=== PATIENT | male | born 1955 | race Caucasian/White ===

== ENCOUNTER 2018-06-21 17:33 | Emergency (ER) | payer MEDICARE ==
[2018-06-21 17:45] VITALS: BP 179/81; PULSE 77; RESP 18; TEMP 97.5
[2018-06-21] MEDS ORDERED: ONDANSETRON 4 MG/2 ML VIAL IVP STA (17:57)
[2018-06-21] MEDS ORDERED: SODIUM CHLORIDE 0.9% 1,000 ML IV STA ×2 (17:57)
[2018-06-21] MEDS ORDERED: KETOROLAC 30 MG/ML 1 ML VIAL IVP STA (17:57)
[2018-06-21] MEDS ORDERED: SODIUM CHLORIDE 0.9% 500 ML IV STA (17:57)
[2018-06-21] MEDS ORDERED: HYDROmorphone 0.5 MG/0.5 ML SYRINGE IVP STA (17:57)
[2018-06-21 18:44] LABS: Basophils # (A) 0.1 k/uL (0-0.2); Basophils % (A) 1 %; Eosinophils # (A) 0.2 k/uL (0-0.7); Eosinophils % (A) 2 %; HCT 42.6 % (39.0-53.0); HGB 14.4 gm/dL (13.0-17.5); Lymphocytes # (A) 2.4 k/uL (1.0-4.8); Lymphocytes % (A) 26 %; MCH 29.4 pg (25.0-35.0); MCHC 33.8 g/dL (31.0-37.0); MCV 86.9 fL (80.0-100.0); Mean Platelet Volume 6.8; Monocytes # (A) 0.6 k/uL (0-1.0); Monocytes % (A) 6 %; Neutrophils # (A) 6.1 k/uL (1.3-7.7); Neutrophils % (A) 64 %; Platelet Count 265 k/uL (150-450); RDW 13.7 % (11.5-15.5); WBC 9.5 k/uL (3.8-10.6)
[2018-06-21 18:54] LABS: ALT 29 U/L (21-72); AST 17 U/L (17-59); Albumin 3.8 g/dL (3.5-5.0); Alkaline Phosphatase 79 U/L (38-126); Amylase 49 U/L (30-110); Anion Gap 11 mmol/L; Blood Urea Nitrogen 24 mg/dL (9-20); Calcium 9.2 mg/dL (8.4-10.2); Carbon Dioxide 23 mmol/L (22-30); Chloride 101 mmol/L (98-107); Glucose 370 mg/dL (74-99); Lipase 229 U/L (23-300); Potassium 4.7 mmol/L (3.5-5.1); Sodium 135 mmol/L (137-145); Total Bilirubin 0.3 mg/dL (0.2-1.3); Total Protein 6.6 g/dL (6.3-8.2)
--- NOTE | 2018-06-21 19:07 | ED ---
General Adult HPI - General Chief complaint: Abdominal Pain Stated complaint: POSS KIDNEY STONE Time Seen by Provider: 06/21/18 17:36 Source: patient, RN notes reviewed, old records reviewed Mode of arrival: ambulatory Limitations: no limitations - History of Present Illness Initial comments: This is a 62-year-old male the ER for evaluation. Patient coming in with right- sided flank pain. Patient places having similar pain a kidney stone pain. Patient has history of kidney stones. No other real significant medical issues. Patient states blood pressure is elevated and has been elevated recently. No recent travel history no sick contacts. No fevers. No dysuria no blow bowel or bladder issues. No anterior abdominal pain, pain is and flank. No injury. No rash - Related Data Home Medications Medication Instructions Recorded Confirmed Aspirin EC [Ecotrin Low Dose] 81 mg PO HS 06/21/18 06/21/18 Insulin Aspart [NovoLOG 5 units SQ AC-TID 06/21/18 06/21/18 (formulary)] Insulin Detemir [Levemir] 70 unit SQ DAILY 06/21/18 06/21/18 Isosorbide Mononitrate ER [Imdur] 30 mg PO DAILY 06/21/18 06/21/18 metFORMIN HCL [metFORMIN HCL ER] 1,000 mg PO BID 06/21/18 06/21/18 Allergies Allergy/AdvReac Type Severity Reaction Status Date / Time morphine AdvReac SHAKING Verified 06/21/18 18:04 Penicillins AdvReac Vomiting Verified 06/21/18 18:04 steroids Allergy Unknown Uncoded 06/21/18 17:45 Review of Systems ROS Statement: Those systems with pertinent positive or pertinent negative responses have been documented in the HPI. ROS Other: All systems not noted in ROS Statement are negative. Past Medical History Past Medical History: Diabetes Mellitus, Hypertension, Myocardial Infarction ([place] ) Additional Past Medical History / Comment(s): psorotic arthritis History of Any Multi-Drug Resistant Organisms: None Reported Past Surgical History: Back Surgery, Heart Catheterization With Stent, Tonsillectomy Past Psychological History: No Psychological Hx Reported Smoking Status: Never smoker Past Alcohol Use History: None Reported Past Drug Use History: None Reported General Exam Limitations: no limitations General appearance: alert, in no apparent distress Head exam: Present: atraumatic, normocephalic, normal inspection Eye exam: Present: normal appearance, PERRL, EOMI. Absent: scleral icterus, conjunctival injection, periorbital swelling ENT exam: Present: normal exam, mucous membranes moist Neck exam: Present: normal inspection. Absent: tenderness, meningismus, lymphadenopathy Respiratory exam: Present: normal lung sounds bilaterally. Absent: respiratory distress, wheezes, rales, rhonchi, stridor Cardiovascular Exam: Present: regular rate, normal rhythm, normal heart sounds. Absent: systolic murmur, diastolic murmur, rubs, gallop, clicks GI/Abdominal exam: Present: soft, normal bowel sounds. Absent: distended, tenderness, guarding, rebound, rigid Extremities exam: Present: normal inspection, full ROM, normal capillary refill. Absent: tenderness, pedal edema, joint swelling, calf tenderness Back exam: Present: normal inspection Neurological exam: Present: alert, oriented X3, CN II-XII intact Psychiatric exam: Present: normal affect, normal mood Skin exam: Present: warm, dry, intact, normal color. Absent: rash Course Vital Signs 06/21/18 17:43 Temperature 97.5 F L Pulse Rate 77 Respiratory 18 Rate Blood Pressure 179/81 O2 Sat by Pulse 97 Oximetry - Reevaluation(s) Reevaluation #1: 06/21/18 19:34 Patient's pain is well-controlled currently Reevaluation #2: 06/21/18 19:34 Medical record is reviewed Medical Decision Making - Medical Decision Making 62 male lying pain. Patient is well controlled pain currently. Patient informed of normal computed tomography scan normal lab work. Patient will be discharged home continue take Motrin Tylenol for pain as needed - Lab Data Result diagrams: 06/21/18 18:10 06/21/18 18:10 Lab Results 06/21/18 06/21/18 Range/Units 18:10 18:10 WBC 9.5 (3.8-10.6) k/uL RBC 4.90 (4.30-5.90) m/uL Hgb 14.4 (13.0-17.5) gm/dL Hct 42.6 (39.0-53.0) % MCV 86.9 (80.0-100.0) fL MCH 29.4 (25.0-35.0) pg MCHC 33.8 (31.0-37.0) g/dL RDW 13.7 (11.5-15.5) % Plt Count 265 (150-450) k/uL Neutrophils % 64 % Lymphocytes % 26 % Monocytes % 6 % Eosinophils % 2 % Basophils % 1 % Neutrophils # 6.1 (1.3-7.7) k/uL Lymphocytes # 2.4 (1.0-4.8) k/uL Monocytes # 0.6 (0-1.0) k/uL Eosinophils # 0.2 (0-0.7) k/uL Basophils # 0.1 (0-0.2) k/uL Sodium 135 L (137-145) mmol/L Potassium 4.7 (3.5-5.1) mmol/L Chloride 101 (98-107) mmol/L Carbon Dioxide 23 (22-30) mmol/L Anion Gap 11 mmol/L BUN 24 H (9-20) mg/dL Creatinine 0.89 (0.66-1.25) mg/dL Est GFR (CKD-EPI)AfAm >90 (>60 ml/min/1.73 sqM) Est GFR (CKD-EPI)NonAf >90 (>60 ml/min/1.73 sqM) Glucose 370 H (74-99) mg/dL Calcium 9.2 (8.4-10.2) mg/dL Total Bilirubin 0.3 (0.2-1.3) mg/dL AST 17 (17-59) U/L ALT 29 (21-72) U/L Alkaline Phosphatase 79 (38-126) U/L Total Protein 6.6 (6.3-8.2) g/dL Albumin 3.8 (3.5-5.0) g/dL Amylase 49 (30-110) U/L Lipase 229 (23-300) U/L - Radiology Data Radiology results: report reviewed (CT abdomen pelvis negative for acute disease ), image reviewed Disposition Clinical Impression: Abdominal pain, Flank pain Disposition: HOME SELF-CARE Condition: Good Instructions: Abdominal Pain (ED), Flank Pain (ED) Is patient prescribed a controlled substance at d/c from ED?: No Referrals: Deidre Morales MD [Primary Care Provider] - 1-2 days
--- NOTE | 2018-06-21 19:21 | CT ---
EXAMINATION TYPE: CT abdomen pelvis wo con DATE OF EXAM: 06/21/2018 COMPARISON: None HISTORY: RIGHT FLANK PAIN. HX OF KIDNEY STONES CT DLP: 767.6 mGycm Automated exposure control for dose reduction was used. TECHNIQUE: Helical acquisition of images was performed from the lung bases through the pelvis. FINDINGS: Lung bases are clear. There is no pleural effusion. There is no pericardial effusion. Liver appears n ormal. Bile ducts are not dilated. There are multiple calcified splenic granulomata. There is no panc reatic mass. Gallbladder appears normal. There is no adrenal mass. Kidneys have normal size and conto ur. There is no hydronephrosis. Ureters are not dilated. There is no retroperitoneal adenopathy. Ther e is no mesenteric adenopathy or edema. I see no intestinal wall thickening. There are no dilated loops. Appendix appears normal. There are a few sigmoid diverticula. There is no sign of diverticulitis. There is no inguinal hernia. There is r ight inguinal lymph node that measures 2.5 x 1.3 cm. There is no sign of pneumoperitoneum. The lumbar spine is intact. There is slight narrowing of L4-5 disc space. I see no focal bone destruction. Bony pelvis is intact. Abdominal soft tissues are unremarkable. Bladder distends smoothly. IMPRESSION: HEALED GRANULOMATOUS DISEASE. NO SIGN OF ACUTE ABDOMEN AND PELVIS. I DO NOT SEE A CAUSE FOR RIGHT FLA NK PAIN. NORMAL APPENDIX. NO SIGN OF RENAL OBSTRUCTION. No renal stone seen.
== END 2018-06-21 19:53 | disposition home or self-care (01) ==
LOC: EC 17:33
DX: R10.9 Unspecified abdominal pain (principal); E11.9 Type 2 diabetes mellitus without complications; I10 Essential (primary) hypertension; I25.2 Old myocardial infarction; Z79.4 Long term (current) use of insulin; Z79.82 Long term (current) use of aspirin; Z79.899 Other long term (current) drug therapy; Z88.0 Allergy status to penicillin; Z88.5 Allergy status to narcotic agent; Z88.8 Allergy status to other drugs, medicaments and biological substances; Z95.5 Presence of coronary angioplasty implant and graft
CPT/HCPCS: 36415; 80053; 82150; 83690; 85025; 74176; 99285; 96374; 96375 ×2; 96361; J2405; J1885; J1170

== ENCOUNTER 2020-11-13 13:04 | Emergency (ER) | payer MEDICARE ==
[2020-11-13 13:12] VITALS: RESP 18; TEMP 97.5
--- NOTE | 2020-11-13 13:21 | ED ---
General Adult HPI - General Chief complaint: Weakness Stated complaint: Weakness Time Seen by Provider: 11/13/20 13:11 Source: patient, EMS, RN notes reviewed, old records reviewed Mode of arrival: EMS Limitations: altered mental status - History of Present Illness Initial comments: 65-year-old male presents for evaluation lightheadedness. Patient has history of diabetes, CAD. 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 Patient states he felt that his blood sugar was dropping he is a diabetic and states that he had to oranges for breakfast today. His blood pressure was obtained at the office and found to be 80 systolic. He states he did not have much to drink today. By the time he was transported by EMS he had a normalized blood pressure and was feeling better. His blood sugar was 1:30. He has no complaints time my evaluation. He feels back to normal, and he had no chest pain no dyspnea, no focal numbness or weakness. No headache. He states he has been eating and drinking well with no vomiting or diarrhea. - Related Data Home Medications Medication Instructions Recorded Confirmed Aspirin EC [Ecotrin Low Dose] 81 mg PO HS 06/21/18 11/13/20 Atorvastatin [Lipitor] 40 mg PO HS 11/13/20 11/13/20 Clopidogrel [Plavix] 75 mg PO DAILY 11/13/20 11/13/20 Losartan Potassium [Cozaar] 25 mg PO DAILY 11/13/20 11/13/20 Metoprolol Tartrate [Lopressor] 12.5 mg PO BID 11/13/20 11/13/20 Pantoprazole Sodium [Protonix] 40 mg PO DAILY 11/13/20 11/13/20 Relion N See Protocol SQ HS 11/13/20 11/13/20 Relion R See Protocol SQ AC-TID 11/13/20 11/13/20 Sertraline [Zoloft] 50 mg PO DAILY 11/13/20 11/13/20 Allergies Allergy/AdvReac Type Severity Reaction Status Date / Time morphine AdvReac SHAKING Verified 11/13/20 14:14 Penicillins AdvReac Vomiting Verified 11/13/20 14:14 steroids Allergy Unknown Uncoded 06/21/18 17:45 Review of Systems ROS Statement: Those systems with pertinent positive or pertinent negative responses have been documented in the HPI. ROS Other: All systems not noted in ROS Statement are negative. Past Medical History Past Medical History: Diabetes Mellitus, Hypertension, Myocardial Infarction ([place]), Supraventricular Tachycardia (SV[place]) Additional Past Medical History / Comment(s): . On April 10, 2020 PT had triple bypass. psorotic arthritis History of Any Multi-Drug Resistant Organisms: None Reported Past Surgical History: Back Surgery, Heart Catheterization With Stent, Tonsillectomy Past Psychological History: No Psychological Hx Reported Smoking Status: Smoker, current status unknown Past Alcohol Use History: None Reported Past Drug Use History: None Reported General Exam Limitations: altered mental status General appearance: alert, in no apparent distress Head exam: Present: atraumatic, normocephalic Eye exam: Present: normal appearance, PERRL ENT exam: Present: mucous membranes dry Neck exam: Present: normal inspection. Absent: tenderness, meningismus Respiratory exam: Present: normal lung sounds bilaterally. Absent: respiratory distress, wheezes Cardiovascular Exam: Present: regular rate, normal rhythm GI/Abdominal exam: Present: soft. Absent: distended, tenderness, guarding, rebound Extremities exam: Present: normal inspection, normal capillary refill. Absent: pedal edema, calf tenderness Neurological exam: Present: alert, oriented X3, CN II-XII intact. Absent: motor sensory deficit Psychiatric exam: Present: normal affect, normal mood Skin exam: Present: warm, dry, intact. Absent: cyanosis, diaphoretic Course Vital Signs 11/13/20 11/13/20 11/13/20 13:07 13:12 14:12 Temperature 97.5 F L Pulse Rate 60 66 Respiratory 18 18 18 Rate Blood Pressure 125/62 122/67 O2 Sat by Pulse 98 98 Oximetry EKG Findings - EKG Comments: EKG Findings:: EKG: Atrial paced rhythm, right bundle branch block, rate of 60, AR interval 208, QRS duration 176 Medical Decision Making - Medical Decision Making 65-year-old male presenting for evaluation of near-syncope, patient appears dehydrated, states he did not have much to eat or drink today. He has no complaints and his vital signs are stable at the time of arrival. Blood sugar is normal. 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 Chest x-ray showing small left-sided pleural effusion, no acute findings. Patient has no complaints while in the emergency department, he is eager for discharge and states that he has an appointment with his septic tank setter tomorrow. - Lab Data Result diagrams: 11/13/20 13:22 11/13/20 13: Lab Results 11/13/20 11/13/20 11/13/20 Range/Units 13:22 13:22 13:22 WBC 10.9 H (3.8-10.6) k/uL RBC 4.51 (4.30-5.90) m/uL Hgb 13.5 (13.0-17.5) gm/dL Hct 39.9 (39.0-53.0) % MCV 88.6 (80.0-100.0) fL MCH 29.9 (25.0-35.0) pg MCHC 33.8 (31.0-37.0) g/dL RDW 14.2 (11.5-15.5) % Plt Count 225 (150-450) k/uL MPV 7.0 Neutrophils % 72 % Lymphocytes % 18 % Monocytes % 6 % Eosinophils % 3 % Basophils % 1 % Neutrophils # 7.8 H (1.3-7.7) k/uL Lymphocytes # 2.0 (1.0-4.8) k/uL Monocytes # 0.7 (0-1.0) k/uL Eosinophils # 0.3 (0-0.7) k/uL Basophils # 0.1 (0-0.2) k/uL PT 10.3 (9.0-12.0) sec INR 1.0 (<1.2) APTT 22.9 (22.0-30.0) sec Sodium 138 (137-145) mmol/L Potassium 4.9 (3.5-5.1) mmol/L Chloride 101 (98-107) mmol/L Carbon Dioxide 26 (22-30) mmol/L Anion Gap 11 mmol/L BUN 20 (9-20) mg/dL Creatinine 1.41 H (0.66-1.25) mg/dL Est GFR (CKD-EPI)AfAm 59 (>60 ml/min/1.73 sqM) Est GFR (CKD-EPI)NonAf 51 (>60 ml/min/1.73 sqM) Glucose 131 H (74-99) mg/dL Calcium 9.6 (8.4-10.2) mg/dL Magnesium 2.0 (1.6-2.3) mg/dL Total Bilirubin 0.6 (0.2-1.3) mg/dL AST 25 (17-59) U/L ALT 28 (4-49) U/L Alkaline Phosphatase 112 (38-126) U/L Troponin I (0.000-0.034) ng/mL Total Protein 6.8 (6.3-8.2) g/dL Albumin 3.9 (3.5-5.0) g/dL 11/13/20 Range/Units 13:22 WBC (3.8-10.6) k/uL RBC (4.30-5.90) m/uL Hgb (13.0-17.5) gm/dL Hct (39.0-53.0) % MCV (80.0-100.0) fL MCH (25.0-35.0) pg MCHC (31.0-37.0) g/dL RDW (11.5-15.5) % Plt Count (150-450) k/uL MPV Neutrophils % % Lymphocytes % % Monocytes % % Eosinophils % % Basophils % % Neutrophils # (1.3-7.7) k/uL Lymphocytes # (1.0-4.8) k/uL Monocytes # (0-1.0) k/uL Eosinophils # (0-0.7) k/uL Basophils # (0-0.2) k/uL PT (9.0-12.0) sec INR (<1.2) APTT (22.0-30.0) sec Sodium (137-145) mmol/L Potassium (3.5-5.1) mmol/L Chloride (98-107) mmol/L Carbon Dioxide (22-30) mmol/L Anion Gap mmol/L BUN (9-20) mg/dL Creatinine (0.66-1.25) mg/dL Est GFR (CKD-EPI)AfAm (>60 ml/min/1.73 sqM) Est GFR (CKD-EPI)NonAf (>60 ml/min/1.73 sqM) Glucose (74-99) mg/dL Calcium (8.4-10.2) mg/dL Magnesium (1.6-2.3) mg/dL Total Bilirubin (0.2-1.3) mg/dL AST (17-59) U/L ALT (4-49) U/L Alkaline Phosphatase (38-126) U/L Troponin I <0.012 (0.000-0.034) ng/mL Total Protein (6.3-8.2) g/dL Albumin (3.5-5.0) g/dL Disposition Clinical Impression: Dehydration, Near syncope Disposition: HOME SELF-CARE Condition: Good Instructions (If sedation given, give patient instructions): Dehydration (ED), Near Syncope (ED) Additional Instructions: Please follow up with your septic tank setter as planned tomorrow Is patient prescribed a controlled substance at d/c from ED?: No Referrals: None,Stated [Primary Care Provider] - 1-2 days Time of Disposition: 15:03
[2020-11-13 13:40] LABS: Basophils # (A) 0.1 k/uL (0-0.2); Basophils % (A) 1 %; Eosinophils # (A) 0.3 k/uL (0-0.7); Eosinophils % (A) 3 %; HCT 39.9 % (39.0-53.0); HGB 13.5 gm/dL (13.0-17.5); Lymphocytes % (A) 18 %; MCH 29.9 pg (25.0-35.0); MCHC 33.8 g/dL (31.0-37.0); MCV 88.6 fL (80.0-100.0); Monocytes # (A) 0.7 k/uL (0-1.0); Monocytes % (A) 6 %; Neutrophils # (A) 7.8 k/uL (1.3-7.7); Neutrophils % (A) 72 %; Platelet Count 225 k/uL (150-450); RBC 4.51 m/uL (4.30-5.90); RDW 14.2 % (11.5-15.5); WBC 10.9 k/uL (3.8-10.6)
[2020-11-13 13:48] LABS: Albumin 3.9 g/dL (3.5-5.0); Calcium 9.6 mg/dL (8.4-10.2); Potassium 4.9 mmol/L (3.5-5.1); Total Bilirubin 0.6 mg/dL (0.2-1.3); Total Protein 6.8 g/dL (6.3-8.2)
[2020-11-13 14:05] LABS: Partial Thromboplastin Time 22.9 sec (22.0-30.0); Prothrombin Time 10.3 sec (9.0-12.0)
--- NOTE | 2020-11-13 14:50 | XR ---
EXAMINATION TYPE: XR chest 2V DATE OF EXAM: 11/13/2020 COMPARISON: None HISTORY: 65-year-old male with syncope TECHNIQUE: AP and lateral views FINDINGS: Median sternotomy wires are present. Annuloplasty ring noted. Suggestion of a small left effusion wit h blunted costophrenic angle. Right lung and pleural space are clear. Left anterior chest wall pacema ker generator with right atrial and right ventricular leads. IMPRESSION: Previous median sternotomy and annuloplasty ring. Left-sided pacemaker generator. There is a small le ft effusion with adjacent atelectasis and/or consolidation.
[2020-11-13 15:16] VITALS: BP 146/79; PULSE 60
== END 2020-11-13 15:29 | disposition home or self-care (01) ==
LOC: EC 13:04
DX: E86.0 Dehydration (principal); R79.89 Other specified abnormal findings of blood chemistry; E11.9 Type 2 diabetes mellitus without complications; I10 Essential (primary) hypertension; I25.10 Atherosclerotic heart disease of native coronary artery without angina pectoris; I25.2 Old myocardial infarction; Z79.82 Long term (current) use of aspirin; Z79.84 Long term (current) use of oral hypoglycemic drugs; Z79.02 Long term (current) use of antithrombotics/antiplatelets; Z88.5 Allergy status to narcotic agent; Z88.0 Allergy status to penicillin; Z88.8 Allergy status to other drugs, medicaments and biological substances; Z79.899 Other long term (current) drug therapy; Z95.5 Presence of coronary angioplasty implant and graft; Z87.19 Personal history of other diseases of the digestive system
CPT/HCPCS: 71046; 80053; 83735; 84484; 85025; 85610; 85730; 93005; 99285